=== PATIENT | male | born 1980 | race Caucasian/White ===

== ENCOUNTER 2018-12-03 17:00 | Emergency (ER) | payer OTHER ==
[~2018-12-03] VITALS: Ht 175.3 cm; Wt 104.5 kg
[2018-12-03 17:10] VITALS: BP 158/96
[2018-12-03 19:42] LABS: BASOPHILS % (AUTO) 0.9 % (0.0-2.0); EOSINOPHILS % (AUTO) 4.4 % (1.0-6.0); HEMATOCRIT 44.9 % (41-53); HEMOGLOBIN 15.1 g/dL (13.5-17.5); LYMPHOCYTES # (AUTO) 2.1 K/uL (1.0-4.8); MEAN CORPUSCULAR HEMOGLOBIN 27.5 pg (26.0-34.0); MEAN CORPUSCULAR HGB CONC 33.5 G/dL (31.0-37.0); MEAN CORPUSCULAR VOLUME 82 fL (80-100); MONOCYTES # (AUTO) 0.5 K/uL (0.1-1.0); MONOCYTES % (AUTO) 8.4 % (2.0-9.0); NEUTROPHILS # (AUTO) 3.4 K/uL (1.8-7.7); NEUTROPHILS % (AUTO) 53.3 % (40.0-70.0); PLATELET COUNT (AUTO) 283 K/uL (150-450); RED BLOOD CELL COUNT(AUTO) 5.47 MIL/uL (4.50-5.90); RED CELL DISTRIBUTION WIDTH 12.9 % (11.5-14.5)
== END 2018-12-03 20:08 | disposition home or self-care (01) ==
LOC: EMS 17:02
DX: K62.5 Hemorrhage of anus and rectum (principal)

== ENCOUNTER 2019-12-24 17:57 | Emergency (ER) | payer OTHER ==
[~2019-12-24] VITALS: Ht 177.8 cm; Wt 100.0 kg
[2019-12-24 20:54] VITALS: BP 138/68
== END 2019-12-24 21:09 | disposition home or self-care (01) ==
LOC: EMS 18:02
DX: S92.511A Displaced fracture of proximal phalanx of right lesser toe(s), initial encounter for closed fracture (principal); W22.8XXA Striking against or struck by other objects, initial encounter; Y93.89 Activity, other specified; Y92.89 Other specified places as the place of occurrence of the external cause; Y99.8 Other external cause status

== ENCOUNTER 2021-11-01 14:19 | Emergency (ER) | payer OTHER ==
[~2021-11-01] VITALS: Ht 172.7 cm; Wt 90.9 kg
[2021-11-01] MEDS ORDERED: LIDOCAINE 1% 10 ML VIAL IARTIC ONE (15:45)
[2021-11-01] MEDS ORDERED: PERTUSS(ACELL),DIPH,TET VAC/PF 0.5 ML SYRINGE IM. ONE (15:45)
[2021-11-01] MEDS ORDERED: BACITRACIN 0.9 GM PACKET OINTMENT TP ONE (15:45)
[2021-11-01 16:36] VITALS: BP 135/80
== END 2021-11-01 16:41 | disposition home or self-care (01) ==
LOC: EMS 14:23
DX: S61.412A Laceration without foreign body of left hand, initial encounter (principal); W29.8XXA Contact with other powered hand tools and household machinery, initial encounter; Y93.89 Activity, other specified; Y92.89 Other specified places as the place of occurrence of the external cause; Y99.0 Civilian activity done for income or pay
CPT/HCPCS: 12001; 90471; 90715; 99283; J3490